=== PATIENT | female | born 1945 | race Two or more races ===

== ENCOUNTER → 2018-04-15 | Emergency (ER) | payer OTHER ==
[~2018-04-15] MED LIST: ASA81 MG; COZAAR50 MG; HYZAAR 100-121 UDTAB PO; MOTRIN800 MG PO; NEURONTIN300 MG PO
== END | disposition left against medical advice (07) ==
LOC: ER 22:03
DX: Z53.20 Procedure and treatment not carried out because of patient's decision for unspecified reasons (principal)

== ENCOUNTER 2019-10-12 12:05 | Emergency (ER) | payer OTHER ==
[~2019-10-12] VITALS: Ht 152.4 cm; Wt 63.5 kg
[2019-10-12] MEDS ORDERED: SIMVASTATIN80 MG (12:22)
[2019-10-12] MEDS ORDERED: DILTIAZEM ER180 M1 (12:23)
[2019-10-12] MEDS ORDERED: NAPR500T14 PO (14:18)
== END 2019-10-12 14:25 | disposition home or self-care (01) ==
LOC: ER 12:05
DX: M54.5 Low back pain (principal)

== ENCOUNTER 2021-09-03 20:09 | Emergency (ER) | payer OTHER ==
[~2021-09-03] VITALS: Ht 152.4 cm; Wt 64.4 kg
[~2021-09-03 20:09] MED LIST changes: +DILTIAZEM ER180 M1; +NAPR500T14 PO; +SIMVASTATIN80 MG
[2021-09-03] MEDS ORDERED: TOPROL XL25 M1 PO (20:30)
[2021-09-03] MEDS ORDERED: DILTIAZEM ER240 M3 PO (20:30)
[2021-09-03] MEDS ORDERED: CHLORTHALIDONE25 MG PO (20:31)
== END 2021-09-03 21:19 | disposition home or self-care (01) ==
LOC: ER 20:09
DX: I10 Essential (primary) hypertension (principal)

== ENCOUNTER 2021-09-13 12:43 | Emergency (ER) | payer OTHER ==
[~2021-09-13] VITALS: Ht 152.4 cm; Wt 64.0 kg
[~2021-09-13 12:43] MED LIST changes: +CHLORTHALIDONE25 MG PO; +DILTIAZEM ER240 M3 PO; +TOPROL XL25 M1 PO
== END 2021-09-13 17:18 | disposition home or self-care (01) ==
LOC: ER 12:43
DX: S20.20XA Contusion of thorax, unspecified, initial encounter (principal); W18.30XA Fall on same level, unspecified, initial encounter; Y93.89 Activity, other specified; Y92.22 Religious institution as the place of occurrence of the external cause; R31.9 Hematuria, unspecified; Z86.79 Personal history of other diseases of the circulatory system

== ENCOUNTER 2022-05-28 23:30 | Emergency (ER) | payer OTHER ==
[~2022-05-28] VITALS: Ht 152.4 cm; Wt 61.7 kg
== END 2022-05-29 12:48 | disposition home or self-care (01) ==
LOC: ER 23:30
DX: R19.7 Diarrhea, unspecified (principal); K62.5 Hemorrhage of anus and rectum; Z91.013 Allergy to seafood

== ENCOUNTER → 2023-06-19 | Emergency (ER) | payer OTHER | END | disposition left against medical advice (07) | LOC: ER 20:14 | DX: Z53.21 Procedure and treatment not carried out due to patient leaving prior to being seen by health care provider (principal) ==